=== PATIENT | male | born 1995 | race Asian ===

== ENCOUNTER 2016-03-22 20:55 | Inpatient (IN) | payer OTHER ==
[2016-03-22] MEDS ORDERED: NS 0.9% 250 ML* 250 ML IV ONE (22:05)
[2016-03-22 22:24] LABS: Hematocrit 39 % (42-52); Hemoglobin 13.1 g/dl (14.0-18.0); Mean Corpuscular HGB Conc 33 g/dl (31-36); Mean Corpuscular Hemoglobin 29 pg (27-31); Mean Corpuscular Volume 87 fL (80-94); Mean Platelet Volume 7 um3 (7.4-10.4); Red Blood Count 4.51 10^6/ul (4.0-5.4); Red Cell Distribution Width 13 % (10.5-15)
[2016-03-22 22:38] LABS: ALT 10 U/L (7-52); AST 18 U/L (13-39); Albumin 4.6 g/dL (3.2-5.2); Alkaline Phosphatase 54 U/L (34-104); Anion Gap 8 mmol/L (2-11); BUN/Creatinine Ratio 14.8 (8-20); Blood Urea Nitrogen 12 mg/dL (6-24); CO2 Carbon Dioxide 25 mmol/L (22-32); Calcium 9.7 mg/dL (8.6-10.3); Chloride 100 mmol/L (101-111); EGFR African American 156.2 (>60); EGFR Non-African American 121.5 (>60); Globulin 4.4 g/dL (2-4); Glucose 106 mg/dL (70-100); Lipase < 10 U/L (11.0-82.0); Potassium 4.1 mmol/L (3.5-5.0); Sodium 133 mmol/L (133-145)
[2016-03-22 23:05] LABS: Urine Bilirubin Negative (Negative); Urine Glucose Negative (Negative); Urine Nitrite Negative (Negative)
[2016-03-22] MEDS ORDERED: Iohexol 300* (CONTRAST) 10 ML SDV IV ONE (23:14)
[2016-03-23] MEDS ORDERED: Levofloxacin 750 MG IVPREMIX(* 750 MG/150 ML BAG IVPB ONE (01:02)
[2016-03-23] MEDS ORDERED: metroNIDAZOLE IV 500 MG/100ML* 500 MG/100 ML BAG IVPB ONE (01:02)
[2016-03-23] MEDS ORDERED: HYDROmorphone INJ* 1 MG/ML CARPUJECT SYRINGE IV PRN ×2 (03:58→12:30)
[2016-03-23] MEDS ORDERED: Ondansetron INJ* 2 MG/ML VIAL IV PRN ×2 (03:58→22:00)
[2016-03-23] MEDS: metroNIDAZOLE IV 500 MG/100ML* 500 MG/100 ML BAG IVPB SCH ×3 (04:31→19:48)
--- NOTE | 2016-03-23 07:44 | RAD ---
CLINICAL HISTORY: Abdominal pain, right lower quadrant pain COMPARISON: None TECHNIQUE: Multiple contiguous axial CT scans were obtained of the abdomen and pelvis after the administration of intravenous contrast. Coronal and sagittal multiplanar reformations are submitted for review. Oral contrast was administered. Delayed images were obtained through the abdomen FINDINGS: LUNG BASES: The lung bases are clear. LIVER: The liver is normal in shape, size, contour, and attenuation. BILE DUCTS: There is no intrahepatic or extrahepatic biliary dilatation. GALLBLADDER: The gallbladder is normal, without pericholecystic inflammatory change. PANCREAS: The pancreas is normal, without mass or ductal dilatation. SPLEEN: Normal in size and appearance. UPPER GI TRACT: Evaluation of the gastrointestinal tract is limited by incomplete gastric distention. The upper GI tract is unremarkable. SMALL BOWEL AND MESENTERY: The small bowel is normal in contour, course, and caliber. There is no obstruction or dilatation. COLON: The colon is normal in contour, course, caliber. There is no pericolonic inflammatory change. There is mucosal thickening and dilatation of the appendix. An appendicolith is noted. There is stranding of the periappendiceal fat. There is a questionable loculated fluid collection at the tip of the appendix measuring 1.3 cm. There are local prominent lymph nodes. ADRENALS: Normal bilaterally. KIDNEYS: The kidneys are normal in shape, size, contour, and axis. There is no hydronephrosis or nephrolithiasis. BLADDER: The bladder is smooth in contour. PELVIC ORGANS: The prostate gland is normal. The seminal vesicles are symmetric. AORTA: The aorta is normal. IVC: Unremarkable LYMPH NODES: There is no lymphadenopathy by size criteria. ABDOMINAL WALL: There is no evidence for abdominal wall hernia. BONES AND SOFT TISSUES: There are mild diffuse degenerative changes. OTHER: There is no free intraperitoneal gas IMPRESSION: DILATED APPENDIX WITH PERIAPPENDICEAL INFLAMMATORY CHANGE CONSISTENT WITH ACUTE APPENDICITIS. THERE IS A QUESTIONABLE 1.3 CM LOCULATED FLUID COLLECTION CONCERNING FOR ABSCESS. THERE IS NO FREE INTRAPERITONEAL GAS
[2016-03-23] MEDS ORDERED: fentaNYL* 50 MCG/ML 2 ML VIAL (100 MCG VIAL) ONE ×2 (08:04→14:11)
[2016-03-23] MEDS ORDERED: Midazolam* 1 MG/ML 2 ML VIAL (2 MG) ONE (08:04)
[2016-03-23] MEDS ORDERED: KETAMINE HCL* 50 MG/ML 10 ML VIAL ONE (08:10)
[2016-03-23] MEDS ORDERED: Ondansetron INJ* 2 MG/ML VIAL ONE (08:15)
[2016-03-23] MEDS ORDERED: Ketorolac INJ* 30 MG/ML 1 ML VIAL ONE (08:15)
[2016-03-23] MEDS ORDERED: Succinylcholine* 20 MG/ML 10 ML VIAL ONE (08:15)
[2016-03-23] MEDS ORDERED: Rocuronium* 10 MG/ML VIAL ONE (08:15)
[2016-03-23] MEDS ORDERED: Propofol* 500 MG/50 ML BTL ONE (08:15)
--- NOTE | 2016-03-23 08:16 | HP ---
DATE OF ADMISSION/DICTATION: 03/23/16 CHIEF COMPLAINT: Abdominal pain. HISTORY OF PRESENT ILLNESS: The patient is a 20-year-old male who's had a gradual increase in abdominal pain over the last two days. It was more generalized in the early part, maybe a little more towards the right lower quadrant at this point. He's been anorexic. He's had no fever, no chills, no nausea, no vomiting. No constipation; maybe a little bit of diarrhea. There's been no change in urination. No accident, injury, or viral illness. He has not had anything like this before. PAST MEDICAL HISTORY: Benign. No chronic illnesses. MEDICATIONS: No regular medications. ALLERGIES: He quotes an ALLERGY TO PENICILLIN. 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 His parents live in [place]. He's a non-smoker. Doesn't use any drugs or illicit substances. FAMILY HISTORY: Benign, no bleeding tendencies or anesthesia reactions. REVIEW OF SYSTEMS: Multi-system review is benign. No cardiac, respiratory, hepatobiliary, major GI or , diabetes or other endocrine. No neuromuscular or psych. PHYSICAL EXAMINATION GENERAL: He is a well-developed, well-nourished, slender male consistent with stated age. Skin is warm and well perfused. He's not diaphoretic or jaundiced. *VITAL SIGNS: he is afebrile. Pulse is 80, respirations 16 and unlabored, blood pressure is normal. HEAD AND NECK: Unremarkable. Neck without any adenopathy or thyromegaly. LUNGS: Clear bilaterally. HEART: Regular without any abnormal sounds. ABDOMEN: Soft, flat, and tender in the right lower quadrant. Very minimal focal rebound tenderness. No referred rebound. No Rovsing's sign. No palpable masses. No hernias. EXTREMITIES: Well perfused and without edema. LABORATORY DATA: Studies show white count at 14,000 with mild left shift. Hemoglobin 13, platelet count 200,000. Electrolytes and renal function, and liver function are all normal. Urinalysis essentially normal. He had a CT scan which shows a fecalith in the appendix, and a markedly dilated appendix with surrounding inflammatory change. I do not perceive any evidence of perforation or abscess. I think the initial reading from the radiologist is just catching the tip of the appendix in a secondary position due to the curve of the appendix, and there is no real abscess. IMPRESSION: A 29-year-old male with acute appendicitis with fecalith in the appendix. I discussed this with him and I recommend laparoscopic appendectomy. I do not think he's a candidate for non-operative therapy. He understands the risks, the rationale, and the expected recovery and agrees to proceed in the fashion outlined. He does understand that one of my partners may perform the surgery depending upon when the operating room is available. CC: [facility] * [id number]/CPS #: [id number] MTDD
[2016-03-23] MEDS ORDERED: Neostigmine Methylsulfate* 2 MG/2 ML SYRINGE ONE (08:17)
[2016-03-23] MEDS ORDERED: Glycopyrrolate IV* 0.2 MG/ML 1 ML VIAL ONE (08:17)
[2016-03-23] MEDS ORDERED: Lidocaine 1% INJ* 10 MG/ML 30 ML SDV ONE (08:40)
[2016-03-23] MEDS ORDERED: Clindamycin 900 MG IVPREMIX(* 900 MG/50 ML SDV IV ONE (10:44)
[2016-03-23] MEDS ORDERED: DiMENhydriNATE IV* 50 MG/ML VIAL IV PUSH PRN (12:30)
--- NOTE | 2016-03-23 13:42 | PN ---
Progress Note - Progress Note Note: Brief Operative Note: Preop Dx: acute appendicitis Postop Dx: same Procedure: laparoscopic -> open appendectomy Anesthesia: GET Surgeon: Naima Asst: COOKIE Brandon EBL <100 ml Fluids: 1300 ml Drains: 1 NOAH; 1/4" packing to RLQ wound Findings: dictated
[2016-03-23] MEDS: fentaNYL* 50 MCG/ML 2 ML VIAL (100 MCG VIAL) IV PRN ×2 (14:11→14:25)
[2016-03-23] MEDS: Acetaminophen TAB* 325 MG PO PRN (19:53)
[2016-03-23] MEDS ORDERED: oxyCODONE/Acetamin 5/325 MG* TAB PO PRN (21:59)
[2016-03-23] MEDS: Heparin VIAL(*) 5000 UNITS/ML VIAL (FIVE THOUSAND) SUBCUT SCH (22:27)
[2016-03-23] MEDS: Ketorolac INJ* 30 MG/ML 1 ML VIAL IV PUSH PRN (22:28)
[2016-03-24] MEDS: Levofloxacin 500 MG IVPREMIX(* 500 MG/100 ML BAG IVPB SCH (02:16)
[2016-03-24] MEDS: metroNIDAZOLE IV 500 MG/100ML* 500 MG/100 ML BAG IVPB SCH ×3 (04:18→20:24)
[2016-03-24] MEDS: Heparin VIAL(*) 5000 UNITS/ML VIAL (FIVE THOUSAND) SUBCUT SCH ×3 (06:22→22:34)
[2016-03-24] MEDS: Ketorolac INJ* 30 MG/ML 1 ML VIAL IV PUSH PRN ×2 (06:24→20:22)
[2016-03-24 07:10] LABS: Hematocrit 36 % (42-52); Hemoglobin 11.7 g/dl (14.0-18.0); Mean Corpuscular HGB Conc 32 g/dl (31-36); Mean Corpuscular Hemoglobin 29 pg (27-31); Mean Corpuscular Volume 88 fL (80-94); Mean Platelet Volume 8 um3 (7.4-10.4); Red Blood Count 4.07 10^6/ul (4.0-5.4); Red Cell Distribution Width 13 % (10.5-15); White Blood Count 14.3 10^3/ul (3.5-10.8)
[2016-03-24 07:28] LABS: BUN/Creatinine Ratio 13.4 (8-20); Calcium 8.7 mg/dL (8.6-10.3); EGFR Non-African American 119.8 (>60); Potassium 4.1 mmol/L (3.5-5.0)
--- NOTE | 2016-03-24 08:01 | PN ---
Progress Note - Progress Note SOAP: Subjective: I also saw the patient last night around 9:30 PM to check his progress and discuss findings with him and his sister. Doing well and feels better after he was encouraged to take more pain meds Pain is now adequately controlled and he slept well and is ambulating to the bathroom and voiding well. No N/V and is tolerating sips of clears Had a small amount of flatus. Objective: Temp Pulse Resp BP Pulse Ox 97.9 F 73 16 98/50 99 03/24/16 03:34 03/24/16 03:34 03/24/16 03:34 03/24/16 03:34 03/24/16 03:34 Intake & Output 03/22/16 03/23/16 03/24/16 03/25/16 06:59 06:59 06:59 06:59 Intake Total 2035 3410 Output Total 600 2100 Balance 1435 1310 Weight 130 lb 130 lb Intake: IV Fluids 1785 2665 LR 2560 IVPB 250 105 Oral 0 640 Output: Urine 600 2100 PEX: Comfortable--awake and alert in NAD Lungs are CTA Cor is RRR Abd is soft and non-distended. Dressings are intact with some drainage on the RLQ gauze. He has bowel sounds throughout, not high pitched. NOAH in place with thin serosanguinous fluid in bulb. Extremities without edema Laboratory Last Values WBC 14.3 10^3/ul (3.5-10.8) H 03/24/16 06:50 RBC 4.07 10^6/ul (4.0-5.4) 03/24/16 06:50 Hgb 11.7 g/dl (14.0-18.0) L 03/24/16 06:50 Hct 36 % (42-52) L 03/24/16 06:50 MCV 88 fL (80-94) 03/24/16 06:50 MCH 29 pg (27-31) 03/24/16 06:50 MCHC 32 g/dl (31-36) 03/24/16 06:50 RDW 13 % (10.5-15) 03/24/16 06:50 Plt Count 204 10^3/ul (150-450) 03/24/16 06:50 MPV 8 um3 (7.4-10.4) 03/24/16 06:50 Neut % (Auto) 83.4 % (38-83) H 03/24/16 06:50 Lymph % (Auto) 9.1 % (25-47) L 03/24/16 06:50 [place] % (Auto) 7.4 % (1-9) 03/24/16 06:50 Eos % (Auto) 0 % (0-6) 03/24/16 06:50 Baso % (Auto) 0.1 % (0-2) 03/24/16 06:50 Absolute Neuts (auto) 11.9 10^3/ul (1.5-7.7) H 03/24/16 06:50 Absolute Lymphs (auto) 1.3 10^3/ul (1.0-4.8) 03/24/16 06:50 Absolute Monos (auto) 1.1 10^3/ul (0-0.8) H 03/24/16 06:50 Absolute Eos (auto) 0 10^3/ul (0-0.6) 03/24/16 06:50 Absolute Basos (auto) 0 10^3/ul (0-0.2) 03/24/16 06:50 Absolute Nucleated RBC 0 10^3/ul 03/24/16 06:50 Nucleated RBC % 0 03/24/16 06:50 INR (Anticoag Therapy) 0.97 (0.89-1.11) 03/22/16 22:05 APTT 34.1 seconds (26.0-36.3) 03/22/16 22:05 Sodium 134 mmol/L (133-145) 03/24/16 06:50 Potassium 4.1 mmol/L (3.5-5.0) 03/24/16 06:50 Chloride 101 mmol/L (101-111) 03/24/16 06:50 Carbon Dioxide 27 mmol/L (22-32) 03/24/16 06:50 Anion Gap 6 mmol/L (2-11) 03/24/16 06:50 BUN 11 mg/dL (6-24) 03/24/16 06:50 Creatinine 0.82 mg/dL (0.67-1.17) 03/24/16 06:50 Est GFR ( Amer) 154.0 (>60) 03/24/16 06:50 Est GFR (Non-Af Amer) 119.8 (>60) 03/24/16 06:50 BUN/Creatinine Ratio 13.4 (8-20) 03/24/16 06:50 Glucose 91 mg/dL (70-100) 03/24/16 06:50 Calcium 8.7 mg/dL (8.6-10.3) 03/24/16 06:50 Total Bilirubin 0.70 mg/dL (0.2-1.0) 03/22/16 22:05 AST 18 U/L (13-39) 03/22/16 22:05 ALT 10 U/L (7-52) 03/22/16 22:05 Alkaline Phosphatase 54 U/L (34-104) 03/22/16 22:05 Total Protein 9.0 g/dL (6.4-8.9) H 03/22/16 22:05 Albumin 4.6 g/dL (3.2-5.2) 03/22/16 22:05 Globulin 4.4 g/dL (2-4) H 03/22/16 22:05 Albumin/Globulin Ratio 1.0 (1-3) 03/22/16 22:05 Lipase < 10 U/L (11.0-82.0) L 03/22/16 22:05 Urine Color Yellow 03/22/16 22:55 Urine Appearance Clear 03/22/16 22:55 Urine pH 6.0 (5-9) 03/22/16 22:55 Ur Specific [place] 1.011 (1.010-1.030) 03/22/16 22:55 Urine Protein Negative (Negative) 03/22/16 22:55 Urine Ketones 1+ (Negative) H 03/22/16 22:55 Urine Blood Negative (Negative) 03/22/16 22:55 Urine Nitrate Negative (Negative) 03/22/16 22:55 Urine Bilirubin Negative (Negative) 03/22/16 22:55 Urine Urobilinogen Negative (Negative) 03/22/16 22:55 Ur Leukocyte Esterase Negative (Negative) 03/22/16 22:55 Urine Glucose Negative (Negative) 03/22/16 22:55 Assessment: POD # 1 s/p open appendectomy for acute appendicitis. Ileus Leukocytosis NOAH in place Plan: Continue IV antibiotics IVF and sips of clears until ileus resolves Continue NOAH drain Increase activity, subq heparin, PPI and IS Recheck WBC in AM I discussed his care with his father yesterday after surgery ) and explained the findings, the procedure performed and the plans for post- operative care and I answered his questions. I will call him this afternoon as well with an update. The patient's older sister is also here and spent the night in the room and she has been updated on his care. I'm not certain when he will be ready for discharge and I explained this to them.
[2016-03-24] MEDS: Acetaminophen TAB* 325 MG PO PRN (08:28)
--- NOTE | 2016-03-24 09:00 | OP ---
DATE OF OPERATION: 03/23/16 - ROOM #347 DATE OF : 89 SURGEON: Art Mcnamara MD. LEAD ESTHETICIAN: COOKIE Aparicio. ANESTHESIOLOGIST: Dr. Gee ANESTHESIA: General with local. PRE-OP DIAGNOSIS: Acute appendicitis. POST-OP DIAGNOSIS: Acute appendicitis. OPERATIVE PROCEDURE: Open appendectomy after unsuccessful attempt at laparoscopic appendectomy. ESTIMATED BLOOD LOSS: Minimal. IV FLUIDS: 1.5 liters of crystalloid. URINE OUTPUT: Not recorded. WOUND CLASSIFICATION: IV. DRAINS: A #10 NOAH drain in the right lower quadrant. COMPLICATIONS: None. SPECIMENS: Appendix. 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 This pain persisted throughout the next 24 hours and, over the course of yesterday, became more severe and generalized. He had no fevers, shakes or chills or diarrhea. He had no vomiting. He called the [facility] later in the day, and, when he told them that he had some right lower quadrant abdominal pain, he was directed to the emergency room last night where he was seen. When seen, he was afebrile. Pulse was in the 80s, blood pressure was normal. He was noted to have tenderness in the right lower quadrant on deep palpation, but no generalized peritonitis or mass. Laboratory workup included a white blood cell count of 14, 000, hemoglobin of 13.1. His electrolytes, BUN and creatinine were all within normal limits. Urinalysis was unremarkable. He underwent a CT scan of the abdomen and pelvis. I did review these images. This showed a dilated appendix with periappendiceal inflammation consistent with acute appendicitis, possibility of a 1.3 cm loculated fluid collection concerning for abscess, but there was no free intraperitoneal air, significant abdominal fluid or other acute findings. There appeared to be probably an appendicolith, and local prominent lymph nodes. After being seen in the emergency room, the patient was admitted, started on intravenous antibiotics, and kept n.p.o. with plans for surgical intervention today. After I reviewed the history and physical exam workup and the CT scan, examined the patient myself and discussed these findings with the patient, I recommended that we proceed with an appendectomy. The procedure was discussed with him and we discussed the laparoscopic approach and the risks of, but not limited to, of bleeding, infection, intraabdominal abscess formation, injury to peritoneal and retroperitoneal structures, possibility there may be an open procedure that imay be required depending on the findings at laparoscopy, and possibility of an abscess formation. The risks of general anesthesia, deep vein thrombosis, recovery time, and hospital stays were all discussed. In addition, we discussed the possibility of nonoperative management with intravenous antibiotics as has been done in some countries, although this is not the standard of care in the [place]. However, with the appendicolith, as well as the almost 48 hours of acute appendicitis, it was felt that he is not an optimal candidate to meet the criteria for intravenous antibiotic treatment; in addition, he would like to proceed with surgery. 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 In addition he said his sister would be coming up from [facility]. He did give me consent to call his father after the procedure and he gave me his cell phone number. DESCRIPTION OF PROCEDURE: Written informed consent was obtained, preoperative antibiotics were administered, the abdomen was marked with indelible ink. The patient was taken to the operating room and placed in the supine position. Sequential compression devices and a warming blanket were applied. General anesthesia was administered, and the abdomen was prepped and draped in the usual sterile fashion. 0.25% Marcaine mixed with 1% lidocaine was infiltrated just above the umbilicus at the midline. A small transverse incision was made, carried down through the midline fascia and the peritoneal cavity was entered under direct vision. A 12-mm blunt port was inserted. The abdomen was insufflated to 15 mmHg. Under direct vision, a 5 mm port was placed in the left lower abdominal wall and a second 5 mm port was placed in the upper right abdominal wall. Upon visualizing the right lower quadrant, it appeared that the terminal ileum was normal caliber without evidence of acute inflammation or other abnormality. There was a firm inflammatory mass that was shirley in color in the right lower quadrant above the pelvic brim adherent to the lateral anterior wall and there was what appeared to be natural adhesions between the mid ascending and right colon to the abdominal wall. However, on palpating this inflammatory area with the laparoscopic instruments in the area of what was felt to be the appendix, it appeared to be a firm inflamed mass which was very hard and almost impossible to grasp with the instruments. I suspected that this area was the severely inflamed appendix that had "curled up" on itself and thus gave the appearance of the solid mass. There was no obvious sign of an abscess, purulence or free fluid. With care, I attempted to mobilize what I felt to be the peritoneum laterally along the distal cecum and the area along the mass using the hook cautery. I tried to bring this up into the field and had some success with this. I was able to retract the small bowel medially to identify what I felt to be the mesentery of the appendix but the peritoneal attachments and retroperitoneum were extremely indurated and firm and bled easily. I persisted for almost 45 minutes in trying to identify the actual appendix and where it may be attached to the cecum and at this point, I felt that I would not proceed safely or was it technically possible to proceed with the laparoscope, and I made a decision to proceed with an open appendectomy. Next, a right lower quadrant transverse incision was made just lateral to the rectus muscle. The external oblique aponeurosis was divided in the direction of its fibers and the underlying muscles were splint in their appropriate direction. The peritoneum was identified, divided, and the peritoneal cavity was entered under direct vision. Adequate exposure was obtained and we were right over the area of the firm inflammatory mass. I was able to grasp this with a Janine and bring it up into the field somewhat, but it was quite firm and tense; however using some sharp and blunt dissection, I was able to mobilize along the lateral aspect as well as inferiorly a thick rind, delivering this up into the field and it appeared to be a "[id number]" appendix with a thickened mesoappendix. It was gangrenous and at one point, grasping the appendix, we tore off a distal half and were able to identify then the cecum. At this point actually, I was able to directly place a Kathie clamp into the cecum and this helped us identify the anatomy. This was well away from where the terminal ileum entered what appeared to be normal cecum. With continued and persistent careful dissection with care to prevent injury to the cecum, I was able to mobilize up the cecum. This all appeared to be viable, except at its base. We followed this down onto the cecum and to the area where the wall was softer and supple, and then amputated the appendix and a portion of the cecum using the cautery so we had a direct view into the cecum and this helped us identify where the terminal ileum entered as well as the surrounding tissue which was quite inflamed. By now we had completely removed the diseased appendix and we had a healthy cecum at the abse of the appendix. A TA-60 Blue Load 4.8 mm Stapler was then used to close the cecum. I over-sewed this with the staple line with interrupted 3-0 silk Lembert sutures. This all appeared to be viable, and hemostasis of this area was assured. We then proceeded to irrigate out the right lower quadrant with a significant amount of saline and hemostasis was assured. We then placed the cecum back into the right lower quadrant. We placed a NOAH drain into the right lower quadrant extending down into the pelvis through a separate stab wound and the right lower quadrant abdominal wall, and sutured it to the skin with a 3-0 Prolene suture. All needles, instruments, sponge, and laparotomy pad counts were reported to me as correct. The peritoneum was then closed with a running 3-0 locked Polysorb suture. We closed the fascia of the respected split muscle with interrupted 0 Polysorb suture. The external oblique aponeurosis was closed with a combination of running and interrupted 0 Polysorb suture. The skin was loosely approximated with the stapling device, and the wound was packed open with one-quarter inch NuGauze. Next, the umbilical incision was closed at the fascial level with interrupted 0 Polysorb suture in usual fashion. These three laparoscopic incisions were then closed with stapler device, and dry sterile dressings were applied on all incisions. The patient tolerated the procedure well, was taken to the recovery room in stable condition. CC: [facility]; [facility]. * [id number]/XIMENA #: [id number] TIERA
[2016-03-24] MEDS: oxyCODONE/Acetamin 5/325 MG* TAB PO PRN (15:08)
[2016-03-24] MEDS: Pantoprazole IV* 40 MG IV SCH (17:00)
[2016-03-25] MEDS: Levofloxacin 500 MG IVPREMIX(* 500 MG/100 ML BAG IVPB SCH (02:07)
[2016-03-25] MEDS: metroNIDAZOLE IV 500 MG/100ML* 500 MG/100 ML BAG IVPB SCH ×3 (05:14→19:49)
[2016-03-25] MEDS: Heparin VIAL(*) 5000 UNITS/ML VIAL (FIVE THOUSAND) SUBCUT SCH ×3 (05:18→22:14)
[2016-03-25] MEDS: Acetaminophen TAB* 325 MG PO PRN ×2 (05:18→16:16)
[2016-03-25 10:11] LABS: Hematocrit 31 % (42-52); Hemoglobin 10.3 g/dl (14.0-18.0); Mean Corpuscular HGB Conc 33 g/dl (31-36); Mean Corpuscular Hemoglobin 29 pg (27-31); Mean Corpuscular Volume 88 fL (80-94); Mean Platelet Volume 7 um3 (7.4-10.4); Red Blood Count 3.51 10^6/ul (4.0-5.4); Red Cell Distribution Width 13 % (10.5-15); White Blood Count 10.3 10^3/ul (3.5-10.8)
[2016-03-25] MEDS: oxyCODONE/Acetamin 5/325 MG* TAB PO PRN (11:34)
--- NOTE | 2016-03-25 11:55 | PN ---
Progress Note - Progress Note SOAP: Subjective: Continues to feel better-tolerated liquids and had a bowel movement Passing some flatus Pain is adequately controlled. He is ambulating in the hallways Objective: Temp Pulse Resp BP Pulse Ox 98.5 F 67 16 112/53 99 03/25/16 07:36 03/25/16 07:36 03/25/16 11:34 03/25/16 07:36 03/25/16 07:36 Intake & Output 03/23/16 03/24/16 03/25/16 03/26/16 06:59 06:59 06:59 06:59 Intake Total 2035 4490 1503 980 Output Total 600 2100 1663 Balance 1435 2390 -160 980 Weight 130 lb 130 lb Intake: IV Fluids 1785 3745 1085 980 LR 2560 980 980 IVPB 250 105 218 Oral 0 640 200 Output: NOAH #1 113 Urine 600 2100 1550 PEX: Comfortable Lungs are CTA Abd is soft and non-distended, incisions are clean and dry. Packing was removed from the right lower quadrant incision and the wound was closed with steri-strips. Bowel sounds are present and are normal active throughout. NOAH in place with small amount of thin serous fluid in bulb Extremities without edema. Laboratory Results - last 24 hr 03/25/16 09:50 WBC 10.3 RBC 3.51 L Hgb 10.3 L Hct 31 L MCV 88 MCH 29 MCHC 33 RDW 13 Plt Count 150 MPV 7 L Neut % (Auto) 78.3 Lymph % (Auto) 14.2 L [place] % (Auto) 6.4 Eos % (Auto) 0.7 Baso % (Auto) 0.4 Absolute Neuts (auto) 8.1 H Absolute Lymphs (auto) 1.5 Absolute Monos (auto) 0.7 Absolute Eos (auto) 0.1 Absolute Basos (auto) 0 Absolute Nucleated RBC 0 Nucleated RBC % 0 Assessment: POD# 2 s/p open appendectomy for acute appendicitis Ileus-resolving WBC normal Plan: D/C NOAH drain IV antibiotics Increase activity to full liquids Increase activity-I stressed to him the importance of walking in the halls. IS, Protonix and subq heparin. Plan d/c tomorrow. I discussed his care and progress with his father on the phone yesterday and answered his questions. He and his are driving to [place] today will arrive tonight and we will plan d/c 03/26/16.
[2016-03-25] MEDS: Pantoprazole IV* 40 MG IV SCH (16:01)
[2016-03-26] MEDS: Levofloxacin 500 MG IVPREMIX(* 500 MG/100 ML BAG IVPB SCH (01:26)
[2016-03-26] MEDS: metroNIDAZOLE IV 500 MG/100ML* 500 MG/100 ML BAG IVPB SCH ×2 (03:59→12:00)
[2016-03-26] MEDS: Heparin VIAL(*) 5000 UNITS/ML VIAL (FIVE THOUSAND) SUBCUT SCH ×2 (05:23→14:12)
[2016-03-26 07:33] LABS: Hematocrit 32 % (42-52); Hemoglobin 10.7 g/dl (14.0-18.0); Mean Corpuscular HGB Conc 33 g/dl (31-36); Mean Corpuscular Hemoglobin 29 pg (27-31); Mean Corpuscular Volume 88 fL (80-94); Mean Platelet Volume 7 um3 (7.4-10.4); Red Blood Count 3.66 10^6/ul (4.0-5.4); Red Cell Distribution Width 13 % (10.5-15); White Blood Count 9.9 10^3/ul (3.5-10.8)
[2016-03-26 07:46] LABS: Albumin 3.1 g/dL (3.2-5.2); BUN/Creatinine Ratio 8.5 (8-20); Calcium 8.3 mg/dL (8.6-10.3); EGFR Non-African American 119.8 (>60); Globulin 3.4 g/dL (2-4); Total Bilirubin 0.4 mg/dL (0.2-1.0); Total Protein 6.5 g/dL (6.4-8.9)
[2016-03-26] MEDS: Pantoprazole IV* 40 MG IV SCH (14:12)
[2016-03-26 16:27] VITALS: BP 104/61
[2016-03-26] MEDS: Acetaminophen TAB* 325 MG PO PRN (18:14)
--- NOTE | 2016-03-28 05:06 | DS ---
DISCHARGE SUMMARY: DATE OF ADMISSION: 03/23/16 DATE OF DISCHARGE: 03/26/16 PRINCIPAL DIAGNOSIS: Acute appendicitis. PROCEDURE PERFORMED: Open appendectomy. CONDITION ON DISCHARGE: Good. DISPOSITION: To a local hotel in the care of both of his parents. DISCHARGE MEDICATIONS: 1. Levaquin 500 mg p.o. daily x5 days. 2. Flagyl 500 mg t.i.d. x5 days. 3. Percocet 1 to 2 q.4-6 hours p.r.n. pain with no refills. All of the above sent electronically to [facility]. I-STOP was checked for the narcotics. Wound care was to shower daily with soap and water and cover right lower quadrant incision with a dry gauze daily. Followup appointment was made to be seen in [facility] on 03/31/16, at 11 a.m. Diet was to advance diet to regular as tolerated. Activity, no heavy lifting, exercise, driving, or prolonged walking until seen in the office. He was allowed to take a shower daily. He was instructed to call if there was a fever, nausea/vomiting, severe abdominal pain, incisional redness or drainage or have other questions or concerns. HISTORY OF PRESENT ILLNESS: Mr. 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 He was anorexic, but had no fevers , shakes, chills, nausea or vomiting, or constipation. He had no change in his urination and there was no recent injury. When seen in the emergency room, he was noted to be afebrile and was tender in the right lower quadrant with very minimal focal rebound tenderness but no generalized abdominal discomfort. No hernias or palpable masses were noted. White blood cell count was noted to be elevated at 14,000. He underwent a CT scan of the abdomen and pelvis, which showed a markedly dilated appendix with surrounding inflammatory change and a probable fecalith in the appendix consistent with acute appendicitis. Radiology had made the mention of the possibility of a small abscess in the area. There was no extraluminal air, significant fluid or other acute findings. HOSPITAL COURSE: The patient was admitted to the surgical service with a diagnosis of acute appendicitis, started on IV antibiotics and kept n.p.o. After discussion with the patient, he was taken to the operating room on the morning of admission where he underwent an attempted laparoscopic appendectomy with conversion to open appendectomy secondary to a significant amount of inflammation in the right lower quadrant and is was not felt to be technically possible with a laparoscope and was converted to an open appendectomy. A NOAH drain was also placed. Postoperatively, he was readmitted to the surgical floor. He was kept n.p.o. for the first 24 hours, his diet was advanced as tolerated and is regular and he is tolerating this well and having bowel movements and passing flatus on discharge. NOAH drain had been placed and was discontinued on postoperative day # 2 with minimal drainage. White blood cell count returned to normal. He remained afebrile and there was some wound packing from his incision that had been removed also on postoperative day #2. His parents arrived from out of town late in the evening of postoperative day #2 , and on postoperative day #3 he was ambulating well, tolerating regular diet, and his pain was adequately controlled with analgesia and he was discharged home. The history, the workup, CAT scan findings and the findings at laparoscopy and appendectomy were all discussed in detail with the patient's parents when they arrived. The above wound care, antibiotic instructions and activity restrictions and followup were all discussed as well and their questions were answered just prior to discharge. CC: [facility]; [facility] [employer]* [id number]/CPS #: [id number] MTDD
--- NOTE | 2016-03-31 07:52 | PN ---
Progress Note - Progress Note SOAP: Subjective: Out of sequence note for 03/26/16 visit as inpatient-this note written for that date's visit on 03/31/16. Patient was seen both in the morning and the evening of 03/26/16. He did well overnight, pain adequately controlled and he slept OK Tolerating diet and had a BM Ambulating in halls His parents arrived last night Objective: Tmax 100.3 VSS I/O's noted PEX Comfortable Lungs are CTA Cor was RRR Abd is soft and non-distended. Incision is clean and dry. Bowel sounds are present and are normoactive. Extremities without edema Labs noted--WBC normal Assessment: POD# 3 s/p open appendectomy for acute appendicitis Ileus-post op and resolved Low grade fever-resolved Normal WBC Plan: Plan d/c today if tolerates po well Patient's parents have arrived in [place] and the patient's care and surgery were discussed with them including the findings at surgery and the pathology report. There concerns were addressed and questions were answered and follow up in the office was arranged. Plan 5 days of oral antibiotics.
--- NOTE | 2016-04-20 23:17 | ED ---
Jesus Oquendo Aidan, scribed for Enzo Callejas on 03/22/16 at 2207 . Abdominal Pain/Male - HPI Summary HPI Summary: 20 y/o male presents to the ED with a complaint of acute, constant, mild (2/10) , diffuse abdominal pain that has persisted for the past 1.5 days. The pain is aggravated by palpating the RLQ. Associated symptoms include feeling bloated, some constipation today, and a lack of appetite. Pt denies any hematochezia. 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 - History of Current Complaint Chief Complaint: EDAbdPain Stated Complaint: ABD PAIN Time Seen by Provider: 03/22/16 21:45 Hx Obtained From: Patient Onset/Duration: Sudden Onset, Lasting Days - 1.5 days, Still Present Timing: Constant, Lasting Days Severity Initially: Mild Severity Currently: Mild Pain Intensity: 2 - Pt said pain was aronud 2-3/10 Pain Scale Used: 0-10 Numeric Location: Diffuse Radiates: No Character: Cramping Aggravating Factor(s): Other: - unknown Alleviating Factor(s): Other: - unknown Associated Signs And Symptoms: Positive: Constipation, Other - lack of appetite , feeling bloated - Risk Factors Cardiac Risk Factors: Negative - Allergies/Home Medications Allergies/Adverse Reactions: Allergies Allergy/AdvReac Type Severity Reaction Status Date / Time Penicillins [PCN] Allergy Rash Verified 03/22/16 23:57 PMH/Surg Hx/FS Hx/Imm Hx Infectious Disease History: No Infectious Disease History: Denies: Traveled Outside the [place] in Last 30 Days - Family History Known Family History: Negative: Seizure Disorder - Social History Occupation: Student Lives: With Family - in [employer] Alcohol Use: Occasionally Hx Substance Use: No Substance Use Type: Reports: None Smoking Status (MU): Never Smoked Tobacco Review of Systems Constitutional: Other - lack of appetite Negative: Fever, Chills, Fatigue, Skin Diaphoresis Eyes: Negative ENT: Negative Cardiovascular: Negative Respiratory: Negative Gastrointestinal: Other - constipation, feeling bloated Positive: Abdominal Pain Genitourinary: Negative Musculoskeletal: Negative Skin: Negative Neurological: Negative Psychological: Normal All Other Systems Reviewed And Are Negative: Yes Physical Exam Triage Information Reviewed: Yes Vital Signs On Initial Exam: Initial Vitals Temp Pulse Resp BP Pulse Ox 98.6 F 84 18 117/78 100 03/22/16 21:02 03/22/16 21:02 03/22/16 21:02 03/22/16 21:02 03/22/16 21:02 Vital Signs Reviewed: Yes Appearance: Positive: Well-Appearing, No Pain Distress Skin: Positive: Warm, Skin Color Reflects Adequate Perfusion, Dry Head/Face: Positive: Normal Head/Face Inspection Eyes: Positive: EOMI, JOSE MIGUEL ENT: Positive: Normal ENT inspection Neck: Positive: Supple, Nontender Respiratory/Lung Sounds: Positive: Clear to Auscultation, Breath Sounds Present Cardiovascular: Positive: RRR, Pulses are Symmetrical in both Upper and Lower Extremities Abdomen Description: Positive: Soft. Negative: Nontender - tenderness in RLQ Bowel Sounds: Positive: Present Musculoskeletal: Positive: Strength/ROM Intact Neurological: Positive: Sensory/Motor Intact, Alert, Oriented to Person Place, Time Psychiatric: Positive: Affect/Mood Appropriate AVPU Assessment: Alert Diagnostics - Vital Signs Vital Signs Temp Pulse Resp BP Pulse Ox 03/22/16 21:02 98.6 F 84 18 117/78 100 - Laboratory Lab Results: Lab Results 03/22/16 03/22/16 03/22/16 Range/Units 22:05 22:05 22:05 WBC 14.0 H (3.5-10.8) 10^3/ul RBC 4.51 (4.0-5.4) 10^6/ul Hgb 13.1 L (14.0-18.0) g/dl Hct 39 L (42-52) % MCV 87 (80-94) fL MCH 29 (27-31) pg MCHC 33 (31-36) g/dl RDW 13 (10.5-15) % Plt Count 200 (150-450) 10^3/ul MPV 7 L (7.4-10.4) um3 Neut % (Auto) 78.9 (38-83) % Lymph % (Auto) 13.4 L (25-47) % Becker % (Auto) 6.6 (1-9) % Eos % (Auto) 0.8 (0-6) % Baso % (Auto) 0.3 (0-2) % Absolute Neuts (auto) 11.0 H (1.5-7.7) 10^3/ul Absolute Lymphs (auto) 1.9 (1.0-4.8) 10^3/ul Absolute Monos (auto) 0.9 H (0-0.8) 10^3/ul Absolute Eos (auto) 0.1 (0-0.6) 10^3/ul Absolute Basos (auto) 0 (0-0.2) 10^3/ul Absolute Nucleated RBC 0.01 10^3/ul Nucleated RBC % 0.1 INR (Anticoag Therapy) 0.97 (0.89-1.11) APTT 34.1 (26.0-36.3) seconds Sodium 133 (133-145) mmol/L Potassium 4.1 (3.5-5.0) mmol/L Chloride 100 L (101-111) mmol/L Carbon Dioxide 25 (22-32) mmol/L Anion Gap 8 (2-11) mmol/L BUN 12 (6-24) mg/dL Creatinine 0.81 (0.67-1.17) mg/dL Est GFR ( Amer) 156.2 (>60) Est GFR (Non-Af Amer) 121.5 (>60) BUN/Creatinine Ratio 14.8 (8-20) Glucose 106 H (70-100) mg/dL Calcium 9.7 (8.6-10.3) mg/dL Total Bilirubin 0.70 (0.2-1.0) mg/dL AST 18 (13-39) U/L ALT 10 (7-52) U/L Alkaline Phosphatase 54 (34-104) U/L Total Protein 9.0 H (6.4-8.9) g/dL Albumin 4.6 (3.2-5.2) g/dL Globulin 4.4 H (2-4) g/dL Albumin/Globulin Ratio 1.0 (1-3) Lipase < 10 L (11.0-82.0) U/L Urine Color Urine Appearance Urine pH (5-9) Ur Specific Jupiter (1.010-1.030) Urine Protein (Negative) Urine Ketones (Negative) Urine Blood (Negative) Urine Nitrate (Negative) Urine Bilirubin (Negative) Urine Urobilinogen (Negative) Ur Leukocyte Esterase (Negative) Urine Glucose (Negative) 03/22/16 03/24/16 03/24/16 Range/Units 22:55 06:50 06:50 WBC 14.3 H (3.5-10.8) 10^3/ul RBC 4.07 (4.0-5.4) 10^6/ul Hgb 11.7 L (14.0-18.0) g/dl Hct 36 L (42-52) % MCV 88 (80-94) fL MCH 29 (27-31) pg MCHC 32 (31-36) g/dl RDW 13 (10.5-15) % Plt Count 204 (150-450) 10^3/ul MPV 8 (7.4-10.4) um3 Neut % (Auto) 83.4 H (38-83) % Lymph % (Auto) 9.1 L (25-47) % Becker % (Auto) 7.4 (1-9) % Eos % (Auto) 0 (0-6) % Baso % (Auto) 0.1 (0-2) % Absolute Neuts (auto) 11.9 H (1.5-7.7) 10^3/ul Absolute Lymphs (auto) 1.3 (1.0-4.8) 10^3/ul Absolute Monos (auto) 1.1 H (0-0.8) 10^3/ul Absolute Eos (auto) 0 (0-0.6) 10^3/ul Absolute Basos (auto) 0 (0-0.2) 10^3/ul Absolute Nucleated RBC 0 10^3/ul Nucleated RBC % 0 INR (Anticoag Therapy) (0.89-1.11) APTT (26.0-36.3) seconds Sodium 134 (133-145) mmol/L Potassium 4.1 (3.5-5.0) mmol/L Chloride 101 (101-111) mmol/L Carbon Dioxide 27 (22-32) mmol/L Anion Gap 6 (2-11) mmol/L BUN 11 (6-24) mg/dL Creatinine 0.82 (0.67-1.17) mg/dL Est GFR ( Amer) 154.0 (>60) Est GFR (Non-Af Amer) 119.8 (>60) BUN/Creatinine Ratio 13.4 (8-20) Glucose 91 (70-100) mg/dL Calcium 8.7 (8.6-10.3) mg/dL Total Bilirubin (0.2-1.0) mg/dL AST (13-39) U/L ALT (7-52) U/L Alkaline Phosphatase (34-104) U/L Total Protein (6.4-8.9) g/dL Albumin (3.2-5.2) g/dL Globulin (2-4) g/dL Albumin/Globulin Ratio (1-3) Lipase (11.0-82.0) U/L Urine Color Yellow Urine Appearance Clear Urine pH 6.0 (5-9) Ur Specific Jupiter 1.011 (1.010-1.030) Urine Protein Negative (Negative) Urine Ketones 1+ H (Negative) Urine Blood Negative (Negative) Urine Nitrate Negative (Negative) Urine Bilirubin Negative (Negative) Urine Urobilinogen Negative (Negative) Ur Leukocyte Esterase Negative (Negative) Urine Glucose Negative (Negative) Result Diagrams: 03/26/16 07:19 03/26/16 07:19 Lab Statement: Any lab studies that have been ordered have been reviewed, and results considered in the medical decision making process. - CT ABD/PEL CT CT Interpretation: Positive (See Comments) - IMPRESSION: APPENDICITIS, POSSIBLY PERFORATED, WITH QUESTIONABLE 13MM ABSCESS. 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 The pain has persisted for the past 1.5 days. According to the patient, he has been drinking more than usual over the past several days as a result of fraternity-related activities. US results indicated appendicitis. The patient will be admitted to Dr. Magaña ( surgery). - Diagnoses Provider Diagnoses: Appendicitis - Provider Notifications Discussed Care Of Patient With: Dr. Magaña (surgery) Time Discussed With Above Provider: 01:11 - The patient will be admitted to Dr. Magaña for an appendectomy. Discharge - Discharge Plan Condition: Fair Disposition: ADMITTED TO [facility] The documentation as recorded by the Jesus carrington Aidan accurately reflects the service I personally performed and the decisions made by , Enzo Callejas.
== END 2016-03-26 18:00 | disposition home or self-care (01) | DRG 339 ==
LOC: ED 20:55 → SSU 03-23 01:18 → OBSVTOIN 03-25 08:46
PROVIDERS: ADMIT Surgery; ATTEND Surgery
PROC: 0DTJ0ZZ Resection of Appendix, Open Approach (ICD-10-PCS; principal; 2016-03-25)
PROC: 0WJP4ZZ Inspection of Gastrointestinal Tract, Percutaneous Endoscopic Approach (ICD-10-PCS; 2016-03-25)
DX: K35.2 Acute appendicitis with generalized peritonitis (principal); K56.7 Ileus, unspecified; Z53.31 Laparoscopic surgical procedure converted to open procedure; Z88.0 Allergy status to penicillin
CPT/HCPCS: 36415; 74177; 80048; 80053; 81003; 83690; 85025; 85610; 85730; 88304; 99283; A9270-GY; G0378; J0330; J1644; J1885; J1956; J2250; J2405; J2704; J3010; J3490; Q9967